=== PATIENT | male | born 1935 | race Asian ===

== ENCOUNTER 2023-06-10 09:34 | Inpatient (IN) | payer MEDICARE ==
[~2023-06-10] VITALS: Ht 167.6 cm; Wt 67.8 kg
[2023-06-10 10:17] LABS: BASOPHILS % (AUTO) 0.9 % (0.0-2.0); EOSINOPHILS % (AUTO) 0.9 % (0.0-6.0); HEMATOCRIT 28 % (39-51); HEMOGLOBIN 9.3 g/dL (13.5-17.5); LYMPHOCYTES # (AUTO) 0.4 K/uL (0.8-4.8); MEAN CORPUSCULAR HEMOGLOBIN 32 PG (26.0-33.0); MEAN CORPUSCULAR HGB CONC 33 g/dl (31.0-36.0); MEAN CORPUSCULAR VOLUME 98 fL (80-96); MONOCYTES # (AUTO) 0.6 K/uL (0.1-1.30); MONOCYTES % (AUTO) 10.3 % (2.0-12.0); NEUTROPHILS # (AUTO) 4.4 K/uL (1.8-8.9); NEUTROPHILS % (AUTO) 79.9 % (43.0-81.0); PLATELET COUNT (AUTO) 88 K/uL (150-450); RED BLOOD CELL COUNT(AUTO) 2.86 MIL/uL (4.5-6.0); RED CELL DISTRIBUTION WIDTH 14.4 % (11.5-15.0); WHITE BLOOD COUNT (AUTO) 5.5 K/uL (4.3-11.0)
[2023-06-10 10:28] LABS: CALCIUM, SERUM 8.6 mg/dL (8.5-10.1); CHLORIDE 107 mmol/L (98-107); GLUCOSE 114 mg/dL (74-106); POTASSIUM 5.3 mmol/L (3.5-5.1); SODIUM SERUM 135 mmol/L (136-145)
[2023-06-10] MEDS: IV NS 0.9% 1,000 ML BAG IV ONE (10:35)
[2023-06-10 10:40] LABS: ALANINE AMINOTRANSFERASE 28 U/L (12-78); ALBUMIN 3.8 g/dL (3.4-5.0); ALKALINE PHOSPHATASE 81 U/L (46-116); ASPARTATE AMINOTRANSFERASE 15 U/L (15-37); BILIRUBIN,DIRECT 0.1 mg/dL (0.0-0.2); BILIRUBIN,TOTAL 0.3 mg/dL (0.2-1.0); LIPASE 218 U/L (16-77); NT-PRO BNP 4502 pg/mL (0-125); TOTAL PROTEIN, SERUM 7.4 g/dL (6.4-8.2)
[2023-06-10 10:41] LABS: CARBON DIOXIDE 8 mmol/L (21-32); UREA NITROGEN, BLOOD 129 mg/dL (7-18)
[2023-06-10 10:42] LABS: CREATININE 8.8 mg/dL (0.6-1.3)
[2023-06-10] MEDS ORDERED: SODIUM POLYSTYRENE SULFONATE 15 G/60 ML BOTTLE ONE (11:07)
[2023-06-10] MEDS: SODIUM POLYSTYRENE SULFONATE 15 G/60 ML BOTTLE PO ONE (11:29)
[2023-06-10] MEDS: SODIUM POLYSTYRENE SULFONATE 15 G/60 ML BOTTLE RC ONE (12:00)
[2023-06-10 12:42] LABS: BAND % (MANUAL) 1 % (0.0-5.0); EOSINOPHILS % (MANUAL) 2 % (0-4); LYMPHOCYTES % (MANUAL) 16 % (16-48); MONOCYTES % (MANUAL) 10 % (0-11.0); NEUTROPHILS % (MANUAL) 71 (42-76); PLATELET ESTIMATE DECREASED
[2023-06-10] MEDS ORDERED: CLOP75TA15 PO (12:56)
[2023-06-10] MEDS ORDERED: ACET650S11 RC (12:56)
[2023-06-10] MEDS ORDERED: BISA10SU11 RC (12:56)
[2023-06-10] MEDS ORDERED: LACT-84 PO (12:56)
[2023-06-10] MEDS ORDERED: ATOR80TA PO (12:56)
[2023-06-10] MEDS ORDERED: DONE5TAB34 PO (12:56)
[2023-06-10] MEDS ORDERED: LACT-58 PO (12:56)
[2023-06-10] MEDS ORDERED: ATRO2DRO4 SL (12:56)
[2023-06-10] MEDS ORDERED: [UNRECOGNIZED DRUG - CODE] TP (12:56)
[2023-06-10] MEDS ORDERED: MORP10SY4 SL (12:57)
[2023-06-10] MEDS ORDERED: LOPE-195 PO (12:57)
[2023-06-10] MEDS ORDERED: GLIM1TAB18 PO (12:57)
[2023-06-10] MEDS ORDERED: IPRA3AMP23 IH (12:57)
[2023-06-10] MEDS ORDERED: MIRT-90 PO (12:57)
[2023-06-10] MEDS ORDERED: LORA2ORA SL (12:57)
[2023-06-10] MEDS ORDERED: METF-442 PO (12:57)
[2023-06-10] MEDS ORDERED: MULT-754 PO (12:57)
[2023-06-10] MEDS ORDERED: ONDA-97 PO (12:57)
[2023-06-10] MEDS ORDERED: MAGN400O6 PO (12:57)
[2023-06-10] MEDS ORDERED: NEOM28.43 TP (12:57)
[2023-06-10] MEDS ORDERED: ACET325T53 PO (12:57)
[2023-06-10] MEDS ORDERED: METH1TAB69 PO (12:57)
[2023-06-10] MEDS ORDERED: MODAFINIL PO (12:57)
[2023-06-10] MEDS ORDERED: ZOLPIDEM TARTRATE 5 MG TABLET PO PRN (14:00)
[2023-06-10] MEDS ORDERED: ATROPINE SULFATE OPHTH SOLN 15 ML BOTTLE SL PRN (14:00)
[2023-06-10] MEDS ORDERED: ONDANSETRON HCL/PF 4 MG/2 ML VIAL IVP PRN (14:00)
[2023-06-10] MEDS ORDERED: ACETAMINOPHEN 325 MG TABLET PO PRN ×2 (14:00)
[2023-06-10] MEDS ORDERED: BISACODYL SUPP (10 MG) 10 MG/SUPP.RECT SUPP.RECT RC PRN (14:00)
[2023-06-10] MEDS ORDERED: MODAFINIL 200 MG PO PRN (14:00)
[2023-06-10] MEDS ORDERED: MAGNESIUM HYDROXIDE 30 ML UDC PO PRN ×2 (14:00)
[2023-06-10] MEDS ORDERED: LOPERAMIDE HCL (2 MG CAP) 2 MG CAPSULE PO PRN (14:00)
[2023-06-10] MEDS ORDERED: ENSURE CLEAR 237 ML LIQUID (MIX BERRY) PO PRN (14:00)
[2023-06-10] MEDS ORDERED: ENOXAPARIN SODIUM 40 MG/0.4 ML DISP.SYRIN SQ SCH (14:00)
[2023-06-10] MEDS ORDERED: MAG HYDROX/AL HYDROX/SIMETH 30 ML UDC PO PRN (14:00)
[2023-06-10] MEDS ORDERED: Z GUARD REMEDY 4 OZ OINT TP PRN (14:00)
[2023-06-10] MEDS ORDERED: MORPHINE SULFATE SL PRN (14:00)
[2023-06-10] MEDS ORDERED: Medication Not On Formulary EA (Ipratropium/Albuterol Sulfate (Duoneb 2.5-0.5 Mg/3 Ml So IH PRN (14:00)
[2023-06-10] MEDS ORDERED: ONDANSETRON 4 MG TAB.RAPDIS PO PRN (14:30)
[2023-06-10] MEDS: IV NS 0.9% 1,000 ML IV PRN (14:39)
[2023-06-10] MEDS ORDERED: IPRATROPIUM NEB FS 0.5 MG/2.5 ML AMPUL.NEB NEB PRN (15:00)
[2023-06-10] MEDS ORDERED: ALBUTEROL FS 2.5 MG/3 ML VIAL.NEB NEB PRN (15:00)
[2023-06-10] MEDS: DONEPEZIL 5 MG TABLET PO SCH (17:00)
[2023-06-10] MEDS ORDERED: Medication Not On Formulary EA (Methenamine Hippurate 1 GM) PO SCH (17:00)
[2023-06-10] MEDS: ENSURE ENLIVE 237 ML LIQUID (VANILLA) PO SCH (17:41)
[2023-06-10] MEDS: BLOOD SUGAR DIAGNOSTIC 1 EACH STRIP IN SCH (17:41)
[2023-06-10 20:00] VITALS: BP 92/65; TEMP 97.2
[2023-06-10] MEDS: HEPARIN SODIUM, PORCINE 5000 UNITS/1 ML VIAL SQ SCH (21:18)
[2023-06-10] MEDS: ATORVASTATIN 40 MG TABLET PO SCH (21:35)
[2023-06-11] VITALS: BP 124/55; TEMP 97.5
[2023-06-11 04:00] VITALS: BP 116/66; TEMP 98.2; O2SAT 99
[2023-06-11 07:20] LABS: BASOPHILS % (AUTO) 0.2 % (0.0-2.0); HEMATOCRIT 24 % (39-51); HEMOGLOBIN 7.9 g/dL (13.5-17.5); LYMPHOCYTES # (AUTO) 0.6 K/uL (0.8-4.8); LYMPHOCYTES % (AUTO) 12.7 % (20.0-44.0); MEAN CORPUSCULAR HEMOGLOBIN 33 PG (26.0-33.0); MEAN CORPUSCULAR HGB CONC 33 g/dl (31.0-36.0); MEAN CORPUSCULAR VOLUME 98 fL (80-96); MONOCYTES # (AUTO) 0.7 K/uL (0.1-1.30); MONOCYTES % (AUTO) 14.3 % (2.0-12.0); NEUTROPHILS # (AUTO) 3.4 K/uL (1.8-8.9); NEUTROPHILS % (AUTO) 71.8 % (43.0-81.0); PLATELET COUNT (AUTO) 71 K/uL (150-450); RED BLOOD CELL COUNT(AUTO) 2.44 MIL/uL (4.5-6.0); RED CELL DISTRIBUTION WIDTH 14.2 % (11.5-15.0); WHITE BLOOD COUNT (AUTO) 4.8 K/uL (4.3-11.0)
[2023-06-11 07:49] LABS: CALCIUM, SERUM 7.7 mg/dL (8.5-10.1); CHLORIDE 119 mmol/L (98-107); GLUCOSE 72 mg/dL (74-106); LIPASE 178 U/L (16-77); PHOSPHORUS 6.4 mg/dL (2.5-4.9); SODIUM SERUM 146 mmol/L (136-145)
[2023-06-11 07:57] LABS: CARBON DIOXIDE 10 mmol/L (21-32)
[2023-06-11 07:58] LABS: CREATININE 7.6 mg/dL (0.6-1.3); UREA NITROGEN, BLOOD 110 mg/dL (7-18)
[2023-06-11 08:00] VITALS: BP 129/60; TEMP 97.6; O2SAT 98
[2023-06-11 08:01] LABS: THYROID STIMULATING HORMONE 0.857 uIU/mL (0.358-3.74)
[2023-06-11] MEDS: MULTIVITAMINS,THERAGRAN 1 UDTAB TABLET PO SCH (08:11)
[2023-06-11] MEDS: CLOPIDOGREL BISULFATE 75 MG TABLET PO SCH (08:12)
[2023-06-11] MEDS: PANTOPRAZOLE 40 MG VIAL IV SCH (08:12)
[2023-06-11 08:30] LABS: ANISOCYTOSIS 1+; BASOPHILS % (MANUAL) 0 % (0.0-2.0); EOSINOPHILS % (MANUAL) 2 % (0-4); LYMPHOCYTES % (MANUAL) 11 % (16-48); MONOCYTES % (MANUAL) 13 % (0-11.0); NEUTROPHILS % (MANUAL) 74 (42-76); PLATELET ESTIMATE DECREASED
[2023-06-11 12:00] VITALS: BP 115/81; TEMP 97.8; O2SAT 98
[2023-06-11] MEDS: IV D5W 1,000 ML IV ONE (12:15)
[2023-06-11] MEDS: Sodium Bicarbonate 100 MEQ in IV 1/2NS 1000 ML 1,000 ML IV SCH (12:16)
[2023-06-11 16:00] VITALS: BP 118/48; TEMP 97.8; O2SAT 65
[2023-06-11 16:05] LABS: APPEARANCE,URINE CLEAR (CLEAR); BILIRUBIN,URINE NEGATIVE (NEGATIVE); BLOOD, URINE 3+ Ery/uL (NEGATIVE); COLOR,URINE YELLOW (YELLOW); KETONES,URINE NEGATIVE (NEGATIVE); LEUKOCYTE ESTERASE ,URINE TRACE (NEGATIVE); NITRITE, URINE NEGATIVE (NEGATIVE); PH,URINE 5.5 (5.0-8.0); PROTEIN,URINE NEGATIVE (NEGATIVE); UGLUCOSE 1+ mg/dL (NEGATIVE); UROBILINOGEN,URINE 0.2 EU/dL (0.2)
[2023-06-11 16:51] LABS: ADD URINE CULTURE NO; BACTERIA,URINE None seen /HPF (None Seen); RBC,URINE 21-50 /HPF (0-2); SQUAMOUS EPITHELIAL CELL,UR None Seen /HPF (None Seen)
[2023-06-11 16:59] LABS: CREATININE, URINE 62.3 MG/DL (30.0-125.0); URINE TOTAL PROTEIN 39.7 mg/dL (0-11.9)
[2023-06-11 17:05] LABS: EOSINOPHIL,URINE Rare
[2023-06-11 17:27] LABS: ALANINE AMINOTRANSFERASE 22 U/L (12-78); ALBUMIN 2.9 g/dL (3.4-5.0); ALKALINE PHOSPHATASE 63 U/L (46-116); ASPARTATE AMINOTRANSFERASE 15 U/L (15-37); BILIRUBIN,TOTAL 0.2 mg/dL (0.2-1.0); CALCIUM, SERUM 7.4 mg/dL (8.5-10.1); CHLORIDE 115 mmol/L (98-107); CREATININE 6.8 mg/dL (0.6-1.3); GLUCOSE 188 mg/dL (74-106); POTASSIUM 4.2 mmol/L (3.5-5.1); SODIUM SERUM 140 mmol/L (136-145); TOTAL PROTEIN, SERUM 5.8 g/dL (6.4-8.2)
[2023-06-11 17:30] LABS: CARBON DIOXIDE 10 mmol/L (21-32)
[2023-06-11 17:32] LABS: UREA NITROGEN, BLOOD 99 mg/dL (7-18)
[2023-06-11 20:00] VITALS: BP 135/61; TEMP 97.7; O2SAT 65
[2023-06-12] VITALS: BP 115/81; TEMP 98.8; O2SAT 97
[2023-06-12 04:00] VITALS: BP 108/56; TEMP 98.5; O2SAT 99
[2023-06-12 07:17] LABS: BASOPHILS % (AUTO) 0.2 % (0.0-2.0); EOSINOPHILS # (AUTO) 0.1 K/uL (0.0-0.7); HEMATOCRIT 22 % (39-51); HEMOGLOBIN 7.5 g/dL (13.5-17.5); LYMPHOCYTES # (AUTO) 0.8 K/uL (0.8-4.8); LYMPHOCYTES % (AUTO) 16.1 % (20.0-44.0); MEAN CORPUSCULAR HEMOGLOBIN 33 PG (26.0-33.0); MEAN CORPUSCULAR HGB CONC 35 g/dl (31.0-36.0); MEAN CORPUSCULAR VOLUME 95 fL (80-96); MONOCYTES # (AUTO) 0.8 K/uL (0.1-1.30); MONOCYTES % (AUTO) 14.9 % (2.0-12.0); NEUTROPHILS # (AUTO) 3.5 K/uL (1.8-8.9); NEUTROPHILS % (AUTO) 67.8 % (43.0-81.0); PLATELET COUNT (AUTO) 70 K/uL (150-450); RED BLOOD CELL COUNT(AUTO) 2.26 MIL/uL (4.5-6.0); RED CELL DISTRIBUTION WIDTH 14.1 % (11.5-15.0); WHITE BLOOD COUNT (AUTO) 5.2 K/uL (4.3-11.0)
[2023-06-12 07:58] LABS: ALANINE AMINOTRANSFERASE 25 U/L (12-78); ALBUMIN 2.9 g/dL (3.4-5.0); ALKALINE PHOSPHATASE 57 U/L (46-116); ASPARTATE AMINOTRANSFERASE 21 U/L (15-37); BILIRUBIN,TOTAL 0.4 mg/dL (0.2-1.0); CALCIUM, SERUM 7.3 mg/dL (8.5-10.1); CARBON DIOXIDE 15 mmol/L (21-32); CHLORIDE 117 mmol/L (98-107); CREATININE 6.2 mg/dL (0.6-1.3); GLUCOSE 113 mg/dL (74-106); LIPASE 153 U/L (16-77); MAGNESIUM 1.8 mg/dL (1.8-2.4); PHOSPHORUS 4.3 mg/dL (2.5-4.9); POTASSIUM 4.5 mmol/L (3.5-5.1); SODIUM SERUM 144 mmol/L (136-145); TOTAL PROTEIN, SERUM 5.9 g/dL (6.4-8.2)
[2023-06-12 08:00] VITALS: BP 123/65; TEMP 99; O2SAT 98
[2023-06-12 08:01] LABS: UREA NITROGEN, BLOOD 96 mg/dL (7-18)
[2023-06-12 11:01] LABS: ANISOCYTOSIS 1+; BASOPHILS % (MANUAL) 0 % (0.0-2.0); EOSINOPHILS % (MANUAL) 3 % (0-4); LYMPHOCYTES % (MANUAL) 13 % (16-48); MONOCYTES % (MANUAL) 12 % (0-11.0); NEUTROPHILS % (MANUAL) 72 (42-76); PLATELET ESTIMATE DECREASED
[2023-06-12 12:00] VITALS: BP 124/60; TEMP 100; O2SAT 98
[2023-06-12 15:38] LABS: CREATINE KINASE, TOTAL 423 U/L (39-308)
[2023-06-12 16:00] VITALS: BP 97/74; TEMP 97.7; O2SAT 96
[2023-06-12 20:00] VITALS: BP 150/54; TEMP 100.4; O2SAT 99
[2023-06-12] MEDS: CEFEPIME 0.5 GM in IV D5W 50 ML IV ONE (22:00)
[2023-06-12] MEDS: ACETAMINOPHEN 650 MG/SUPP.RECT RC PRN (22:52)
[2023-06-12] MEDS ORDERED: CEFEPIME 1 GM VIAL ONE (23:06)
[2023-06-13] VITALS: BP 153/46; TEMP 100.2; O2SAT 97
[2023-06-13 04:00] VITALS: BP 160/43; TEMP 99; O2SAT 98
[2023-06-13 07:13] LABS: BASOPHILS % (AUTO) 0.1 % (0.0-2.0); EOSINOPHILS % (AUTO) 0.4 % (0.0-6.0); HEMATOCRIT 24 % (39-51); HEMOGLOBIN 8.1 g/dL (13.5-17.5); LYMPHOCYTES # (AUTO) 1.6 K/uL (0.8-4.8); LYMPHOCYTES % (AUTO) 21.7 % (20.0-44.0); MEAN CORPUSCULAR HEMOGLOBIN 33 PG (26.0-33.0); MEAN CORPUSCULAR HGB CONC 34 g/dl (31.0-36.0); MEAN CORPUSCULAR VOLUME 96 fL (80-96); MONOCYTES # (AUTO) 1.2 K/uL (0.1-1.30); MONOCYTES % (AUTO) 16.2 % (2.0-12.0); NEUTROPHILS # (AUTO) 4.4 K/uL (1.8-8.9); NEUTROPHILS % (AUTO) 61.6 % (43.0-81.0); PLATELET COUNT (AUTO) 74 K/uL (150-450); RED BLOOD CELL COUNT(AUTO) 2.46 MIL/uL (4.5-6.0); RED CELL DISTRIBUTION WIDTH 14.4 % (11.5-15.0); WHITE BLOOD COUNT (AUTO) 7.2 K/uL (4.3-11.0)
[2023-06-13 07:37] LABS: CALCIUM, SERUM 7.6 mg/dL (8.5-10.1); CARBON DIOXIDE 19 mmol/L (21-32); CHLORIDE 116 mmol/L (98-107); CREATININE 5.3 mg/dL (0.6-1.3); GLUCOSE 121 mg/dL (74-106); MAGNESIUM 1.7 mg/dL (1.8-2.4); PHOSPHORUS 4.1 mg/dL (2.5-4.9); POTASSIUM 4.1 mmol/L (3.5-5.1); SODIUM SERUM 151 mmol/L (136-145)
[2023-06-13 08:00] VITALS: BP 113/90; TEMP 98.6; O2SAT 99
[2023-06-13 08:27] LABS: LYMPHOCYTES % (MANUAL) 21 % (16-48); MONOCYTES % (MANUAL) 8 % (0-11.0); NEUTROPHILS % (MANUAL) 71 (42-76); PLATELET ESTIMATE DECREASED
[2023-06-13 08:28] LABS: ANISOCYTOSIS 1+
[2023-06-13 08:44] LABS: UREA NITROGEN, BLOOD 80 mg/dL (7-18)
[2023-06-13] MEDS: VANCOMYCIN 1 GM in IV D5W 250ml IV ONE (11:24)
[2023-06-13 11:54] LABS: THYROID STIMULATING HORMONE 0.693 uIU/mL (0.358-3.74)
[2023-06-13 15:46] LABS: ABG BASE EXCESS -8.6 mmol/L; ABG OXYGEN SATURATION 87.7 % (92.0-98.5); ABG PH 7.417 (7.350-7.450); ABG PO2 52.6 mmHg (75.0-100.0); ABG TOTAL HEMOGLOBIN 9.6 G/dL (13.5-18.0); AaDO2 69.6 mmHg; COHb 0.3 % (0.5-1.5); MetHb 0.2 % (0.0-1.5); O2Hb 87.3 % (94.0-97.0); SITE, ABG Right Radial; VENT MODE, BG RA 21%
[2023-06-13 16:00] VITALS: BP 138/67; TEMP 98.3; O2SAT 98
[2023-06-13] MEDS ORDERED: Sodium Bicarbonate 100 MEQ in IV D5W 1,000 ML IV SCH (17:00)
[2023-06-13] MEDS ORDERED: Sodium Bicarbonate 100 MEQ in IV 1/2NS 1000 ML 1,000 ML IV SCH (17:00)
[2023-06-13] MEDS: Sodium Bicarbonate 100 MEQ in IV D5W 1,000 ML IV SCH (17:23)
[2023-06-13] MEDS: CEFEPIME 1 GM in IV D5W 50 ML IV SCH (22:22)
[2023-06-14 00:06] LABS: PTH, INTACT 98 pg/mL (15-65)
[2023-06-14 00:31] VITALS: BP 138/65; TEMP 98.7; O2SAT 99
[2023-06-14 05:39] VITALS: BP 149/61; TEMP 99; O2SAT 99
[2023-06-14 07:14] LABS: BASOPHILS % (AUTO) 0.1 % (0.0-2.0); EOSINOPHILS # (AUTO) 0.1 K/uL (0.0-0.7); EOSINOPHILS % (AUTO) 1.7 % (0.0-6.0); HEMATOCRIT 23 % (39-51); HEMOGLOBIN 7.7 g/dL (13.5-17.5); LYMPHOCYTES # (AUTO) 0.7 K/uL (0.8-4.8); LYMPHOCYTES % (AUTO) 11.7 % (20.0-44.0); MEAN CORPUSCULAR HEMOGLOBIN 33 PG (26.0-33.0); MEAN CORPUSCULAR HGB CONC 34 g/dl (31.0-36.0); MEAN CORPUSCULAR VOLUME 97 fL (80-96); MONOCYTES # (AUTO) 0.7 K/uL (0.1-1.30); MONOCYTES % (AUTO) 12.7 % (2.0-12.0); NEUTROPHILS # (AUTO) 4.2 K/uL (1.8-8.9); NEUTROPHILS % (AUTO) 73.8 % (43.0-81.0); PLATELET COUNT (AUTO) 82 K/uL (150-450); RED BLOOD CELL COUNT(AUTO) 2.38 MIL/uL (4.5-6.0); RED CELL DISTRIBUTION WIDTH 14.4 % (11.5-15.0); WHITE BLOOD COUNT (AUTO) 5.7 K/uL (4.3-11.0)
[2023-06-14] MEDS: Sodium Bicarbonate 50 MEQ in IV D5W 1,000 ML IV SCH (07:31)
[2023-06-14 08:00] VITALS: BP 151/69; TEMP 98; O2SAT 95
[2023-06-14 09:08] LABS: CALCIUM, SERUM 7.7 mg/dL (8.5-10.1); CARBON DIOXIDE 21 mmol/L (21-32); CHLORIDE 114 mmol/L (98-107); CREATININE 4.7 mg/dL (0.6-1.3); GLUCOSE 197 mg/dL (74-106); MAGNESIUM 1.6 mg/dL (1.8-2.4); PHOSPHORUS 3.8 mg/dL (2.5-4.9); POTASSIUM 3.2 mmol/L (3.5-5.1); SODIUM SERUM 154 mmol/L (136-145); UREA NITROGEN, BLOOD 66 mg/dL (7-18)
[2023-06-14 10:01] LABS: ANISOCYTOSIS 1+; BASOPHILS % (MANUAL) 0 % (0.0-2.0); EOSINOPHILS % (MANUAL) 1 % (0-4); LYMPHOCYTES % (MANUAL) 10 % (16-48); MONOCYTES % (MANUAL) 7 % (0-11.0); NEUTROPHILS % (MANUAL) 82 (42-76); PLATELET ESTIMATE DECREASED
[2023-06-14 11:07] LABS: *SPE ALBUMIN 2.6 g/dL (2.9-4.4); *SPE ALPHA-1-GLOBULIN 0.3 g/dL (0.0-0.4); *SPE ALPHA-2-GLOBULIN 0.8 g/dL (0.4-1.0); *SPE BETA GLOBULIN 0.7 g/dL (0.7-1.3); *SPE GLOBULIN, TOTAL 2.6 g/dL (2.2-3.9); *SPE M-SPIKE Not Observed g/dL (Not Observed); *SPE PROTEIN TOTAL 5.2 g/dL (6.0-8.5); *SPEGAMMA GLOBULIN 0.9 g/dL (0.4-1.8)
[2023-06-14 12:09] LABS: FOLIC ACID 13.2 ng/mL (>3.0)
[2023-06-14] MEDS: POTASSIUM CL. PREMIX PERIPHER. 50 ML IV SCH (12:41)
[2023-06-14 16:00] VITALS: BP 150/45; TEMP 98.7; O2SAT 100
[2023-06-14 20:00] VITALS: BP 157/75; TEMP 98; O2SAT 100
[2023-06-15 04:00] VITALS: BP 131/70; TEMP 98.2; O2SAT 100
[2023-06-15 06:57] LABS: BASOPHILS % (AUTO) 0.3 % (0.0-2.0); EOSINOPHILS # (AUTO) 0.1 K/uL (0.0-0.7); EOSINOPHILS % (AUTO) 2.7 % (0.0-6.0); HEMATOCRIT 22 % (39-51); HEMOGLOBIN 7.6 g/dL (13.5-17.5); LYMPHOCYTES # (AUTO) 0.8 K/uL (0.8-4.8); LYMPHOCYTES % (AUTO) 17.8 % (20.0-44.0); MEAN CORPUSCULAR HEMOGLOBIN 33 PG (26.0-33.0); MEAN CORPUSCULAR HGB CONC 34 g/dl (31.0-36.0); MEAN CORPUSCULAR VOLUME 97 fL (80-96); MONOCYTES # (AUTO) 0.5 K/uL (0.1-1.30); MONOCYTES % (AUTO) 11.6 % (2.0-12.0); NEUTROPHILS # (AUTO) 3.1 K/uL (1.8-8.9); NEUTROPHILS % (AUTO) 67.6 % (43.0-81.0); PLATELET COUNT (AUTO) 93 K/uL (150-450); RED BLOOD CELL COUNT(AUTO) 2.31 MIL/uL (4.5-6.0); RED CELL DISTRIBUTION WIDTH 14.1 % (11.5-15.0); WHITE BLOOD COUNT (AUTO) 4.5 K/uL (4.3-11.0)
[2023-06-15 07:08] LABS: CALCIUM, SERUM 7.6 mg/dL (8.5-10.1); CARBON DIOXIDE 28 mmol/L (21-32); CHLORIDE 113 mmol/L (98-107); GLUCOSE 214 mg/dL (74-106); MAGNESIUM 1.7 mg/dL (1.8-2.4); POTASSIUM 3.8 mmol/L (3.5-5.1); SODIUM SERUM 150 mmol/L (136-145); UREA NITROGEN, BLOOD 51 mg/dL (7-18)
[2023-06-15 11:47] LABS: LYMPHOCYTES % (MANUAL) 14 % (16-48); NEUTROPHILS % (MANUAL) 75 (42-76)
[2023-06-15 11:48] LABS: ANISOCYTOSIS 1+; BASOPHILS % (MANUAL) 0 % (0.0-2.0); EOSINOPHILS % (MANUAL) 2 % (0-4); MONOCYTES % (MANUAL) 9 % (0-11.0); PLATELET ESTIMATE DECREASED
[2023-06-15 12:00] VITALS: BP 128/63; TEMP 98.4; O2SAT 100
[2023-06-15 20:00] VITALS: BP 129/71; TEMP 98.4; O2SAT 100
[2023-06-16 04:00] VITALS: BP 137/60; TEMP 98.5; O2SAT 100
[2023-06-16 09:35] LABS: CALCIUM, SERUM 7.6 mg/dL (8.5-10.1); CARBON DIOXIDE 31 mmol/L (21-32); CHLORIDE 108 mmol/L (98-107); CREATININE 3.6 mg/dL (0.6-1.3); GLUCOSE 192 mg/dL (74-106); POTASSIUM 3.5 mmol/L (3.5-5.1); SODIUM SERUM 146 mmol/L (136-145); UREA NITROGEN, BLOOD 43 mg/dL (7-18)
[2023-06-16] MEDS: VANCOMYCIN 750 MG in IV D5W 250 ML IV SCH (11:16)
[2023-06-16 12:00] VITALS: BP 127/53; TEMP 97.6; O2SAT 100
[2023-06-16] MEDS: IV 1/2NS 1000 ML 1,000 ML IV PRN (14:09)
[2023-06-16 20:00] VITALS: BP 114/54; TEMP 97.6; O2SAT 100
[2023-06-17 04:00] VITALS: BP 121/55; TEMP 97.8; O2SAT 100
[2023-06-17 06:44] LABS: BASOPHILS % (AUTO) 0.3 % (0.0-2.0); EOSINOPHILS # (AUTO) 0.1 K/uL (0.0-0.7); EOSINOPHILS % (AUTO) 2.6 % (0.0-6.0); HEMATOCRIT 21 % (39-51); HEMOGLOBIN 7.2 g/dL (13.5-17.5); LYMPHOCYTES # (AUTO) 0.7 K/uL (0.8-4.8); LYMPHOCYTES % (AUTO) 17.7 % (20.0-44.0); MEAN CORPUSCULAR HEMOGLOBIN 32 PG (26.0-33.0); MEAN CORPUSCULAR HGB CONC 34 g/dl (31.0-36.0); MEAN CORPUSCULAR VOLUME 96 fL (80-96); MONOCYTES # (AUTO) 0.4 K/uL (0.1-1.30); MONOCYTES % (AUTO) 10.6 % (2.0-12.0); NEUTROPHILS # (AUTO) 2.7 K/uL (1.8-8.9); NEUTROPHILS % (AUTO) 68.8 % (43.0-81.0); PLATELET COUNT (AUTO) 91 K/uL (150-450); RED BLOOD CELL COUNT(AUTO) 2.22 MIL/uL (4.5-6.0); RED CELL DISTRIBUTION WIDTH 13.7 % (11.5-15.0); WHITE BLOOD COUNT (AUTO) 3.9 K/uL (4.3-11.0)
[2023-06-17 07:07] LABS: CALCIUM, SERUM 7.3 mg/dL (8.5-10.1); CARBON DIOXIDE 29 mmol/L (21-32); CHLORIDE 106 mmol/L (98-107); CREATININE 3.3 mg/dL (0.6-1.3); GLUCOSE 154 mg/dL (74-106); POTASSIUM 3.2 mmol/L (3.5-5.1); SODIUM SERUM 143 mmol/L (136-145); UREA NITROGEN, BLOOD 36 mg/dL (7-18)
[2023-06-17 08:00] VITALS: BP 144/61; TEMP 98; O2SAT 100
[2023-06-17] MEDS: Z GUARD REMEDY 4 OZ OINT TP SCH (09:00)
[2023-06-17 09:55] LABS: ANISOCYTOSIS 1+; BASOPHILS % (MANUAL) 0 % (0.0-2.0); EOSINOPHILS % (MANUAL) 5 % (0-4); LYMPHOCYTES % (MANUAL) 15 % (16-48); MONOCYTES % (MANUAL) 9 % (0-11.0); NEUTROPHILS % (MANUAL) 71 (42-76); PLATELET ESTIMATE DECREASED
[2023-06-17] MEDS ORDERED: SIMETHICONE/SOD BICARB/CIT AC 1 EACH GRAN.EF.PK PO ONE (10:00)
[2023-06-17] MEDS: POTASSIUM CL. PREMIX PERIPHER. 50 ML IV STA (11:53)
[2023-06-17 16:00] VITALS: BP 114/78; TEMP 98.1; O2SAT 100
[2023-06-17 20:00] VITALS: BP 139/54; TEMP 98.2; O2SAT 98
[2023-06-18] VITALS (14 sets, daily range): BP systolic 129–136; BP diastolic 53–64; TEMP 98.1–99.5; O2SAT 98–100
[2023-06-18 06:34] LABS: CARBON DIOXIDE 28 mmol/L (21-32); CHLORIDE 106 mmol/L (98-107); CREATININE 3.2 mg/dL (0.6-1.3); GLUCOSE 144 mg/dL (74-106); POTASSIUM 3.6 mmol/L (3.5-5.1); SODIUM SERUM 142 mmol/L (136-145); UREA NITROGEN, BLOOD 32 mg/dL (7-18)
[2023-06-18 08:35] LABS: BASOPHILS % (AUTO) 0.4 % (0.0-2.0); EOSINOPHILS # (AUTO) 0.1 K/uL (0.0-0.7); EOSINOPHILS % (AUTO) 2.5 % (0.0-6.0); HEMATOCRIT 21 % (39-51); LYMPHOCYTES # (AUTO) 0.6 K/uL (0.8-4.8); LYMPHOCYTES % (AUTO) 14.5 % (20.0-44.0); MEAN CORPUSCULAR HEMOGLOBIN 33 PG (26.0-33.0); MEAN CORPUSCULAR HGB CONC 34 g/dl (31.0-36.0); MEAN CORPUSCULAR VOLUME 97 fL (80-96); MONOCYTES # (AUTO) 0.4 K/uL (0.1-1.30); MONOCYTES % (AUTO) 9.3 % (2.0-12.0); NEUTROPHILS # (AUTO) 2.9 K/uL (1.8-8.9); NEUTROPHILS % (AUTO) 73.3 % (43.0-81.0); PLATELET COUNT (AUTO) 102 K/uL (150-450); RED BLOOD CELL COUNT(AUTO) 2.15 MIL/uL (4.5-6.0); RED CELL DISTRIBUTION WIDTH 13.3 % (11.5-15.0); WHITE BLOOD COUNT (AUTO) 3.9 K/uL (4.3-11.0)
[2023-06-18] MEDS: PANTOPRAZOLE 40 MG/PACK PACK PO SCH (08:52)
[2023-06-18] MEDS ORDERED: VANCOMYCIN 750 MG in IV D5W 250 ML IV SCH (10:00)
[2023-06-18] MEDS: VANCOMYCIN 750 MG in IV D5W 250 ML IV SCH (11:27)
[2023-06-19 04:00] VITALS: BP 138/58; TEMP 98.8; O2SAT 100
[2023-06-19 04:13] VITALS: O2SAT 96
[2023-06-19 08:00] VITALS: BP 142/51; TEMP 97.7; O2SAT 100
[2023-06-19 09:22] LABS: BASOPHILS % (AUTO) 0.3 % (0.0-2.0); EOSINOPHILS # (AUTO) 0.1 K/uL (0.0-0.7); EOSINOPHILS % (AUTO) 1.4 % (0.0-6.0); HEMATOCRIT 25 % (39-51); HEMOGLOBIN 8.6 g/dL (13.5-17.5); LYMPHOCYTES # (AUTO) 0.6 K/uL (0.8-4.8); LYMPHOCYTES % (AUTO) 9.3 % (20.0-44.0); MEAN CORPUSCULAR HEMOGLOBIN 31 PG (26.0-33.0); MEAN CORPUSCULAR HGB CONC 34 g/dl (31.0-36.0); MEAN CORPUSCULAR VOLUME 91 fL (80-96); MONOCYTES # (AUTO) 0.5 K/uL (0.1-1.30); MONOCYTES % (AUTO) 7.5 % (2.0-12.0); NEUTROPHILS # (AUTO) 5.2 K/uL (1.8-8.9); NEUTROPHILS % (AUTO) 81.5 % (43.0-81.0); PLATELET COUNT (AUTO) 100 K/uL (150-450); RED BLOOD CELL COUNT(AUTO) 2.79 MIL/uL (4.5-6.0); RED CELL DISTRIBUTION WIDTH 16.8 % (11.5-15.0); WHITE BLOOD COUNT (AUTO) 6.4 K/uL (4.3-11.0)
[2023-06-19 09:32] LABS: CALCIUM, SERUM 6.7 mg/dL (8.5-10.1); CARBON DIOXIDE 28 mmol/L (21-32); CHLORIDE 106 mmol/L (98-107); CREATININE 2.9 mg/dL (0.6-1.3); GLUCOSE 169 mg/dL (74-106); POTASSIUM 3.6 mmol/L (3.5-5.1); SODIUM SERUM 142 mmol/L (136-145); UREA NITROGEN, BLOOD 26 mg/dL (7-18)
[2023-06-19] MEDS: PANTOPRAZOLE 40 MG VIAL IV SCH (09:37)
[2023-06-19] MEDS: MEGESTROL ACETATE SUSP 400 MG/10 ML UDC PO SCH (12:00)
[2023-06-19] MEDS: NEPRO VAN 237 ML CAN PO SCH (13:30)
[2023-06-19 16:00] VITALS: BP 136/55; TEMP 98.8; O2SAT 100
[2023-06-19] MEDS: TAMSULOSIN 0.4 MG CAP.SR.24H PO ONE (18:30)
[2023-06-19 20:32] VITALS: BP 124/50; TEMP 97.9; O2SAT 99
[2023-06-19 21:10] VITALS: O2SAT 97
[2023-06-19] MEDS ORDERED: TAMSULOSIN 0.4 MG CAP.SR.24H PO SCH ×2 (22:00)
[2023-06-20 04:00] VITALS: BP 139/49; TEMP 97.8; O2SAT 99
[2023-06-20 08:00] VITALS: BP 105/90; TEMP 98.4; O2SAT 98
[2023-06-20] MEDS: VIT B CMPLX 3/FA/VIT C/BIOTIN 1 TAB TABLET PO SCH (08:31)
[2023-06-20] MEDS: PANTOPRAZOLE 40 MG/PACK PACK PO SCH (08:31)
[2023-06-20 08:33] LABS: CALCIUM, SERUM 7.2 mg/dL (8.5-10.1); CARBON DIOXIDE 29 mmol/L (21-32); CHLORIDE 107 mmol/L (98-107); CREATININE 2.9 mg/dL (0.6-1.3); GLUCOSE 168 mg/dL (74-106); POTASSIUM 3.4 mmol/L (3.5-5.1); SODIUM SERUM 142 mmol/L (136-145); UREA NITROGEN, BLOOD 28 mg/dL (7-18)
[2023-06-20] MEDS ORDERED: Tamsulosin PO (08:48)
[2023-06-20] MEDS ORDERED: PANT40SU2 PO (08:48)
[2023-06-20] MEDS ORDERED: MEGE400O5 PO (08:48)
[2023-06-20 16:00] VITALS: BP 112/81; TEMP 98.4; O2SAT 99
[2023-06-20] MEDS ORDERED: TAMSULOSIN 0.4 MG CAP.SR.24H PO SCH (22:00)
== END 2023-06-20 16:44 | DRG 177 ==
LOC: ER 09:34 → TELE-TD 11:49 → TELE1 11:52 → MEDSG1 06-13 11:07
PROVIDERS: ADMIT Student in an Organized Health Care Education/Training Program; ATTEND Internal Medicine
PROC: 05HB33Z Insertion of Infusion Device into Right Basilic Vein, Percutaneous Approach (ICD-10-PCS; principal; 2023-06-17)
PROC: 30233N1 Transfusion of Nonautologous Red Blood Cells into Peripheral Vein, Percutaneous Approach (ICD-10-PCS; 2023-06-18)
DX: J69.0 Pneumonitis due to inhalation of food and vomit (principal); G92.8 Other toxic encephalopathy; K85.90 Acute pancreatitis without necrosis or infection, unspecified; N17.0 Acute kidney failure with tubular necrosis; E44.0 Moderate protein-calorie malnutrition; E87.1 Hypo-osmolality and hyponatremia; N13.30 Unspecified hydronephrosis; E87.20 Acidosis, unspecified; Q39.6 Congenital diverticulum of esophagus; E86.0 Dehydration; F03.90 Unspecified dementia, unspecified severity, without behavioral disturbance, psychotic disturbance, mood disturbance, and anxiety; R62.7 Adult failure to thrive; I12.9 Hypertensive chronic kidney disease with stage 1 through stage 4 chronic kidney disease, or unspecified chronic kidney disease; N18.9 Chronic kidney disease, unspecified; E11.22 Type 2 diabetes mellitus with diabetic chronic kidney disease; Z20.822 Contact with and (suspected) exposure to COVID-19; E78.5 Hyperlipidemia, unspecified; E78.00 Pure hypercholesterolemia, unspecified; Z93.3 Colostomy status; Z51.5 Encounter for palliative care; Z66 Do not resuscitate; Z79.84 Long term (current) use of oral hypoglycemic drugs; Z79.02 Long term (current) use of antithrombotics/antiplatelets; Z79.899 Other long term (current) drug therapy; D64.9 Anemia, unspecified; Z79.51 Long term (current) use of inhaled steroids; E86.9 Volume depletion, unspecified; M89.8X9 Other specified disorders of bone, unspecified site; Y95 Nosocomial condition
CPT/HCPCS: 36410; 36415; 36600; 70450-TC; 71045-TC; 71250-TC; 74230-TC; 76770-TC; 80048-TC; 80053-TC; 80061-TC; 80076-TC; 80202-TC; 81001; 82140-TC; 82550-TC; 82553; 82570-TC; 82607-TC; 82803-TC; 82962-TC; 83690-TC; 83735-TC; 83880; 83921; 83970; 84100-TC; 84155; 84165; 84300-TC; 84443-TC; 84484-TC; 85025-TC; 86850-TC; 87040-TC; 87086-TC; 92526; 92611-TC; 94761-TC; 94762-TC; 94799-TC; 97110-TC; 97112-TC; 97116-TC; 97530-TC; A4223; C9113; G0378; J0692; J1644; J3370; J3371; J3480; J3490; J7030; J7050; J7060; J7070; P9016

== ENCOUNTER 2023-06-25 15:57 | Emergency (ER) | payer MEDICARE ==
[~2023-06-25] VITALS: Ht 167.6 cm; Wt 64.0 kg
[~2023-06-25 15:57] MED LIST: ACET325T53 PO; ACET650S11 RC; ATOR80TA PO; ATRO2DRO4 SL; BISA10SU11 RC; CLOP75TA15 PO; DONE5TAB34 PO; GLIM1TAB18 PO; IPRA3AMP23 IH; LACT-58 PO; LACT-84 PO; LOPE-195 PO; LORA-258 PO; LORA2ORA SL; MAGN400O6 PO; MEGE400O5 PO; METF-442 PO; METH1TAB69 PO; MIRT-90 PO; MODAFINIL PO; MORP10SY4 SL; MULT-754 PO; NEOM28.43 TP; ONDA-97 PO; PANT40SU2 PO; TAMS-12 PO; Tamsulosin PO; [UNRECOGNIZED DRUG - CODE] TP
[2023-06-25 16:43] LABS: BASOPHILS % (AUTO) 0.3 % (0.0-2.0); EOSINOPHILS # (AUTO) 0.1 K/uL (0.0-0.7); EOSINOPHILS % (AUTO) 1.3 % (0.0-6.0); HEMATOCRIT 25 % (39-51); HEMOGLOBIN 8.4 g/dL (13.5-17.5); LYMPHOCYTES # (AUTO) 0.8 K/uL (0.8-4.8); LYMPHOCYTES % (AUTO) 17.3 % (20.0-44.0); MEAN CORPUSCULAR HEMOGLOBIN 31 PG (26.0-33.0); MEAN CORPUSCULAR HGB CONC 34 g/dl (31.0-36.0); MEAN CORPUSCULAR VOLUME 91 fL (80-96); MONOCYTES # (AUTO) 0.4 K/uL (0.1-1.30); MONOCYTES % (AUTO) 9.2 % (2.0-12.0); NEUTROPHILS # (AUTO) 3.3 K/uL (1.8-8.9); NEUTROPHILS % (AUTO) 71.9 % (43.0-81.0); PLATELET COUNT (AUTO) 183 K/uL (150-450); RED BLOOD CELL COUNT(AUTO) 2.74 MIL/uL (4.5-6.0); RED CELL DISTRIBUTION WIDTH 16.5 % (11.5-15.0); WHITE BLOOD COUNT (AUTO) 4.6 K/uL (4.3-11.0)
[2023-06-25 16:53] LABS: CALCIUM, SERUM 8.2 mg/dL (8.5-10.1); CARBON DIOXIDE 24 mmol/L (21-32); CHLORIDE 103 mmol/L (98-107); CREATININE 3.2 mg/dL (0.6-1.3); GLUCOSE 109 mg/dL (74-106); POTASSIUM 4.5 mmol/L (3.5-5.1); SODIUM SERUM 137 mmol/L (136-145); UREA NITROGEN, BLOOD 28 mg/dL (7-18)
[2023-06-25 16:59] LABS: CREATINE KINASE, TOTAL 171 U/L (39-308)
[2023-06-25] MEDS ORDERED: AMIN30LI27 PO (18:01)
[2023-06-25] MEDS ORDERED: EMPA10TA PO (18:01)
[2023-06-25] MEDS ORDERED: PANT40TA49 PO (18:01)
[2023-06-25 20:35] VITALS: BP 105/64; TEMP 98; O2SAT 100
== END 2023-06-25 20:36 ==
LOC: ER 16:06
DX: S32.039A Unspecified fracture of third lumbar vertebra, initial encounter for closed fracture (principal); D63.1 Anemia in chronic kidney disease; F03.90 Unspecified dementia, unspecified severity, without behavioral disturbance, psychotic disturbance, mood disturbance, and anxiety; I12.9 Hypertensive chronic kidney disease with stage 1 through stage 4 chronic kidney disease, or unspecified chronic kidney disease; E11.22 Type 2 diabetes mellitus with diabetic chronic kidney disease; N18.9 Chronic kidney disease, unspecified; Z79.899 Other long term (current) drug therapy; W18.30XA Fall on same level, unspecified, initial encounter; Y93.89 Activity, other specified; Y92.89 Other specified places as the place of occurrence of the external cause; Y99.8 Other external cause status
CPT/HCPCS: 36415; 70450-TC; 71250-TC; 72125-TC; 80048-TC; 82550-TC; 85025-TC